=== PATIENT | male | born 1950 | race Caucasian/White ===

== ENCOUNTER 2019-08-13 15:39 | Emergency (ER) | payer MEDICARE, BC ==
[2019-08-13] MEDS ORDERED: Metoclopramide 10 MG/2 ML SDV IVPUSH ONE (16:04)
[2019-08-13] MEDS ORDERED: HYDROmorphone 0.5 MG/0.5 ML Syringe IVPUSH ONE (16:04)
--- NOTE | 2019-08-13 16:09 | EDM.PDOC ---
ED HPI GENERAL MEDICAL PROBLEM - General Chief Complaint: Flank Pain Stated Complaint: L FLANK PAIN Time Seen by Provider: 08/13/19 16:04 Source of Information: Reports: Patient, Family () History Limitations: Reports: No Limitations - History of Present Illness INITIAL COMMENTS - FREE TEXT/NARRATIVE: 69-year-old male presents to the ED with acute onset of severe left flank pain now rating around the lower abdomen towards the inguinal area. It does not radiate down to the testicle yet. Associated nausea without vomiting. Associating continuous feeling of need to void but unable to do so. Pain started suddenly about 1230 hrs. today. He has no history of previous kidney stones. Has had no previous abdominal surgery. Not noticed any blood in his urine. Onset: Today, Sudden Onset Date: 08/13/19 Onset Time: 12:30 Duration: Hour(s):, Constant, Getting Worse, Other (Acute component to the pain) Location: Reports: Abdomen (Left hemiabdomen rating down to the inguinal area), Back Quality: Reports: Ache (Flank pain), Other Severity: Severe Improves with: Reports: None (10) Worsens with: Reports: None Context: Denies: Activity, Exercise, Lifting, Sick Contact, Trauma, Other Associated Symptoms: Reports: No Other Symptoms Treatments WIND TECHNICIAN: Reports: Other (see below) Other Treatments WIND TECHNICIAN: none Left Flank Pain Score (Numeric/FACES): 9 - Related Data Allergies Allergy/AdvReac Type Severity Reaction Status Date / Time No Known Allergies Allergy Verified 08/13/19 15:57 Home Meds: Home Meds Finasteride 5 mg PO DAILY 08/13/19 [History] Losartan [Cozaar] 50 mg PO DAILY 08/13/19 [History] Ondansetron [Zofran] 4 mg BUCCAL Q6H PRN #5 tab 08/13/19 [Rx] Tamsulosin HCl 0.4 mg PO DAILY 08/13/19 [History] atorvaSTATin [Lipitor] 80 mg PO DAILY 08/13/19 [History] oxyCODONE HCl/Acetaminophen [Percocet 5-325 mg Tablet] 1 - 2 each PO Q4H PRN # 20 tablet 08/13/19 [Rx] Past Medical History Cardiovascular History: Reports: High Cholesterol, Hypertension Genitourinary History: Reports: BPH, Prostate Disorder Social & Family History - Tobacco Use Smoking Status *Q: Never Smoker - Caffeine Use Caffeine Use: Reports: Coffee - Recreational Drug Use Recreational Drug Use: No - Living Situation & Occupation Living situation: Reports: Occupation: Employed ED ROS GENERAL - Review of Systems Review Of Systems: See Below Constitutional: Denies: Fever, Chills, Malaise, Weakness, Fatigue, Weight Loss HEENT: Reports: No Symptoms Respiratory: Reports: No Symptoms Cardiovascular: Reports: Blood Pressure Problem Endocrine: Reports: No Symptoms GI/Abdominal: Reports: Abdominal Pain, Decreased Appetite : Reports: Frequency, Urgency, Other (Patient has problems with benign prostatic hypertrophy nocturia x2.). Denies: Dysuria Musculoskeletal: Reports: Back Pain Skin: Reports: No Symptoms (Sudden onset of left flank pains at 1230 hrs. today. ) Neurological: Reports: No Symptoms Psychiatric: Reports: No Symptoms Hematologic/Lymphatic: Reports: No Symptoms Immunologic: Reports: No Symptoms ED EXAM, RENAL/ - Physical Exam Exam: See Below Exam Limited By: No Limitations General Appearance: Alert, WD/WN, Moderate Distress ( no position is comfortable and he is pacing the floor.), Other Eye Exam: Bilateral Eye: Normal Inspection Respiratory/Chest: No Respiratory Distress, Lungs Clear, Normal Breath Sounds, No Accessory Muscle Use, Chest Non-Tender Cardiovascular: Normal Peripheral Pulses, Regular Rate, Rhythm, No Edema, No Gallop, No Murmur, No Rub GI/Abdominal: Soft (Quiesced sent bowel sounds all 4 quadrants.), Non-Tender, No Organomegaly, No Mass, Pelvis Stable, Abnormal Bowel Sounds, Other (All umbilical hernia that is easily reducible.) Back Exam: Normal Inspection, Full Range of Motion. No: CVA Tenderness (L), CVA Tenderness (R) Extremities: Normal Inspection, Normal Range of Motion, Non-Tender, No Pedal Edema Neurological: Alert, Oriented, CN II-XII Intact, Normal Cognition Psychiatric: Normal Affect, Normal Mood Skin Exam: Warm, Dry, Intact, Normal Color, No Rash Course - Vital Signs Last Recorded V/S: Last Vital Signs Temp 36.7 C 08/13/19 17:09 Pulse 66 08/13/19 17:09 Resp 18 08/13/19 17:09 BP 143/61 H 08/13/19 17:09 Pulse Ox 95 08/13/19 17:09 - Orders/Labs/Meds Orders: Active Orders 24 hr Category Date Time Status URINALYSIS W/MICROSCOPIC [UA W/MICROSCOPIC] [URIN] Stat Lab 08/13/19 16:04 Ordered Meds: Medications Discontinued Medications Generic Name Dose Route Start Last Admin Trade Name Zoey PRN Reason Stop Dose Admin Hydromorphone HCl 0.5 mg 08/13/19 16:04 08/13/19 16:20 Dilaudid IVPUSH 08/13/19 16:05 0.5 mg ONETIME ONE Administration Sodium Chloride 1,000 mls @ 150 mls/hr 08/13/19 16:15 08/13/19 16:29 Normal Saline IV 150 mls/hr ASDIRECTED CEZAR Administration Ketorolac Tromethamine 30 mg 08/13/19 16:15 08/13/19 16:26 Toradol IVPUSH 30 mg ONETIME CEZAR Administration Metoclopramide HCl 10 mg 08/13/19 16:04 08/13/19 16:23 Reglan IVPUSH 08/13/19 16:05 10 mg ONETIME ONE Administration - Radiology Interpretation Free Text/Narrative:: 69-year-old male presents to the ED with acute onset of severe left flank pain rating now in along the left hemiabdomen down towards the left inguinal area. Pain came on suddenly about 1230 hrs. today. Associated nausea without vomiting. Associated feeling of need to void but unable to do so a sense of urgency and frequency. He has not noticed any hematuria. Benign abdominal examination. Clinically he has a stone in the mid to distal left ureter. Plan IV fluids normal saline at 150 mils per hour. Given Dilaudid 0.5 mg IV with Toradol 30 mg IV and Reglan 10 mg IV. Urinalysis to be obtained. CT of the abdomen per renal protocol - Re-Assessments/Exams Free Text/Narrative Re-Assessment/Exam: 08/13/19 16:50: Patient reports pain is pretty well gone. T of the abdomen and pelvis was performed per renal protocol. Multiple calcifications are seen within both kidneys combined with nonobstructing calculi I counted at least 6 stones within the left kidney and 5 within the right kidney. No calcified gallstones are identified. There is inflammatory type change around the right kidney i.e. perinephric stranding due to obstruction of the distal left ureter at the UVJ. The left ureter is dilated down to the UVJ. There is a 3.2 mm obstructing stone within the distal left ureter at the UVJ projecting into the urinary bladder. No additional ureteral calculi were identified. Views of the lower portions of the liver shows a small cyst measuring 1.1 cm close to the intrahepatic portion of the inferior vena cava. Spleen appears to be normal. Adrenal glands show no nodules. Pancreas is within normal limits. Aorta shows atherosclerotic calcification without any aneurysm. Appendix is seen which is normal. No retroperitoneal adenopathy or mesenteric abnormalities are seen. No pelvic mass or adenopathy is identified. No free fluid or other inflammatory changes are seen in the pelvis. Note 1 of the stones on the left side is in the portion of the left kidney and likely is to extrude shortly into the ureter. It measures about 3 mm in size. Departure - Departure Time of Disposition: 16:57 Disposition: Home, Self-Care 01 Condition: Fair Clinical Impression: Ureteric colic - Discharge Information *PRESCRIPTION DRUG MONITORING PROGRAM REVIEWED*: Not Applicable *COPY OF PRESCRIPTION DRUG MONITORING REPORT IN PATIENT JANIS: Not Applicable Prescriptions: Ondansetron [Zofran] 4 mg BUCCAL Q6H PRN #5 tab PRN Reason: nausea or vomiting oxyCODONE HCl/Acetaminophen [Percocet 5-325 mg Tablet] 1 - 2 each PO Q4H PRN # 20 tablet PRN Reason: pain relief. Instructions: Kidney Stones, [id number] Referrals: Konrad Dale MD [Primary Care Provider] - Forms: ED Department Discharge Additional Instructions: Evaluation in the emergency room today in regards to sudden onset of development of severe left lower back pain rating around the left abdomen down towards the left groin. This started about 1230 hrs. today. Associated nausea without vomiting. No position was comfortable with this pain. This is characteristic presentation for kidney stone. CT of the abdomen confirms a 3.2 mm stone at the very lower portion of the left ureter projecting into the urinary bladder meaning it has about a half and is to travel before it will be in your bladder at which time the pain would go away completely. However the CT also identifies that you have multiple stones in both kidney tissues that could be become problematic in the future. The largest is approximately 3 mm in the left kidney that is very close to starting to make its way down the left ureter. The other stones are 1 to 2 mm and there are 6 on the left side and 5 on the right kidney that I could count. You were treated in the ED with IV fluids and medication to relieve pain called Reglan Toradol and Dilaudid. You may get a recurrence of pain as the stone starts to pass further. May take Zofran under the tongue if you are nauseated. May use Percocet tablets 5/325 mg usually 2 tablets for relief of this intense pain every 4 hours as needed. Just passing her water into a quart jar and pouring it through a 7 to you identify the stone has passed. The stone should feel like a small rock or palpable and that you do not have to strain the urine any further. To medical care if you continue to have pain or vomit. Or stone has not been passed within the next 2 weeks. A urologist within have to become involved in your care. Sepsis Event Note - Evaluation Sepsis Screening Result: No Definite Risk - Focused Exam Vital Signs: Vital Signs Temp Pulse Resp BP Pulse Ox 08/13/19 17:09 36.7 C 66 18 143/61 H 95 08/13/19 16:02 36.0 C L 59 L 20 203/96 H 99 Date Exam was Performed: 08/13/19 Time Exam was Performed: 18:58 - My Orders Last 24 Hours: My Active Orders 08/13/19 16:04 URINALYSIS W/MICROSCOPIC [UA W/MICROSCOPIC] [URIN] Stat - Assessment/Plan Last 24 Hours: My Active Orders 08/13/19 16:04 URINALYSIS W/MICROSCOPIC [UA W/MICROSCOPIC] [URIN] Stat
[2019-08-13] MEDS ORDERED: Ketorolac 30 MG/ML SDV IVPUSH SCH (16:15)
[2019-08-13] MEDS ORDERED: Sodium Chloride 0.9% 1,000 ML IV SCH (16:15)
--- NOTE | 2019-08-13 16:36 | CT ---
CT abdomen and pelvis Technique: Multiple axial sections were obtained from above the kidneys inferiorly through the pubic symphysis. Intravenous and oral contrast not utilized. Study has been performed as a ureteral stone protocol. Findings: Multiple calcifications are seen within both kidneys compatible with nonobstructing calculi. Inflammatory type change is seen around the left kidney. Left ureter is dilated down to the UVJ. These findings are caused by a 3.2 mm obstructing stone within the distal left ureter at the UVJ projecting into the bladder. No additional ureteral calculi are seen. Visualized lower portions of the liver shows a small cyst measuring 1.1 cm close to the intrahepatic portion of the inferior vena cava. Spleen appears within normal limits. Adrenal glands show no nodule. Pancreas is within normal limits. Aorta shows atherosclerotic calcification without aneurysm. Appendix is seen which is normal. No retroperitoneal adenopathy or mesenteric abnormalities are seen. No pelvic mass or adenopathy is seen. No free fluid or other inflammatory change is seen. Bone window settings were reviewed. Slight degenerative change is scattered within the spine. No acute osseous finding is appreciated. Impression: 1. Multiple nonobstructing calculi within both kidneys. 2. Obstructing stone within the distal left ureter at the UVJ measuring 3.2 mm. 3. Other findings believed to be incidental as noted above. Diagnostic code #3 This report was dictated in [place] Standard Time
== END 2019-08-13 17:09 | disposition home or self-care (01) ==
LOC: JD.ED 15:39
DX: N20.2 Calculus of kidney with calculus of ureter (principal); I10 Essential (primary) hypertension; E78.00 Pure hypercholesterolemia, unspecified; Z79.899 Other long term (current) drug therapy
CPT/HCPCS: 74176; 96361; 96374; 96375; 99284; J1170; J1885; J2765; J7030